=== PATIENT | female | born 1930 | race Caucasian/White ===

== ENCOUNTER 2022-03-07 09:12 | Outpatient (CLI) | payer MEDICARE | END 2022-03-07 09:13 | disposition home or self-care (01) | LOC: CSHWCC 09:12 | PROVIDERS: ATTEND Nurse Practitioner Family | DX: S81.801D Unspecified open wound, right lower leg, subsequent encounter (principal) | CPT/HCPCS: 11042; 97139; G0463; 99203 ==

== ENCOUNTER 2022-03-21 15:22 | Outpatient (CLI) | payer MEDICARE | END 2022-03-21 15:23 | disposition home or self-care (01) | LOC: CSHWCC 15:22 | PROVIDERS: ATTEND Nurse Practitioner Family | DX: S81.801D Unspecified open wound, right lower leg, subsequent encounter (principal) ==

== ENCOUNTER 2022-04-11 13:40 | Outpatient (CLI) | payer MEDICARE | END 2022-04-11 13:41 | disposition home or self-care (01) | LOC: CSHWCC 13:40 | PROVIDERS: ATTEND Preventive Medicine Undersea and Hyperbaric Medicine | DX: S81.801D Unspecified open wound, right lower leg, subsequent encounter (principal) | CPT/HCPCS: 99212; G0463 ==

== ENCOUNTER 2022-05-04 10:51 | Outpatient (CLI) | payer MEDICARE | END 2022-05-04 10:52 | disposition home or self-care (01) | LOC: CSHWCC 10:51 | PROVIDERS: ATTEND Preventive Medicine Undersea and Hyperbaric Medicine | DX: S81.801D Unspecified open wound, right lower leg, subsequent encounter (principal) | CPT/HCPCS: 97139; G0463; 99213 ==